=== PATIENT | female | born 1940 | race Caucasian/White ===

== ENCOUNTER → 2017-01-11 | Outpatient (CLI) | payer MEDICARE ==
[~2017-01-11] MED LIST: ALBUTEROL0.83 MG/ML; ALBUTEROL20 ml INH; BIOTIN; CALCIUM 1200 MG; CARVEDILOL12.5 MG PO; CITALOPRAM HBR40 MG PO; CLOBETASOL PROP59 ML TP; CYMBALTA PO; DICYCLOMINE HCL20 MG PO; ESOMEPRAZOLE MA40 MG PO; FOLIC ACID; HYDROCODONE-APA1 T56 PO; KLONOPIN1 MG PO; LEXAPRO PO; LIPITOR20 MG PO; MULTIVITAMIN; MYRBETRIQ25 MG PO; NEXIUM PO; OMEGA 3 FISH OI1 CAP PO; PERCOCET7.5 PO; PHENERGAN25 M1 PO; PROAIR HFA8.5 GM INH; QUETIAPINE FUMA50 MG PO; SYMBICORT INH; VITAMIN D35000 UNIT PO
--- NOTE | ~2017-01-11 | EKG ---
PATIENT: CHERELLE MAR UNIT #: [id number] Ventricular Rate: 53 BPM Atrial Rate: 53 BPM P-R Interval: 190 ms QRS Duration: 142 ms Q-T Interval: 468 ms QTC Calculation(Bezet): 439 ms P [place]: 84 degrees Calculated R [place]: 55 degrees Calculated T [place]: -18 degrees Diagnosis Line: Sinus bradycardia Diagnosis Line: Right bundle branch block Diagnosis Line: T wave abnormality, consider lateral ischemia Diagnosis Line: Abnormal ECG Diagnosis Line: No previous ECGs available Diagnosis Line: Confirmed by BERE ROBERTSON MD ([id number]) on Diagnosis Line: 01/11/2017 3:51:55 PM INTERPRETING MD: MARCELO MCKNIGHT
[2017-01-11 14:19] LABS: HEMATOCRIT 33.8 % (35.0-45.0); HEMOGLOBIN 10.9 gm/dL (12.0-16.0); MEAN CELL VOLUME 85.4 FL (83-96); MEAN CORPUSCULAR HEMOGLOBIN 27.5 PG (28-34); MEAN CORPUSCULAR HGB CONC 32.2 g/dL (30-36); MEAN PLATELET VOLUME 7.7 FL (6.5-11.5); RED BLOOD COUNT 3.96 X10e (3.90-5.30); RED CELL DISTRIBUTION WIDTH 16.9 % (11.0-15.5); WHITE BLOOD COUNT 4.8 X10e3 (4.0-10.5)
[2017-01-11 14:49] LABS: BUN/CREATININE RATIO 21.11; CALCIUM SERUM 8.6 mg/dL (8.4-10.2); CREATININE SERUM 0.9 mg/dL (0.6-1.4)
== END | disposition home or self-care (01) ==
LOC: CAMB 13:45
PROVIDERS: Orthopaedic Surgery
DX: Z01.818 Encounter for other preprocedural examination (principal); S86.811A Strain of other muscle(s) and tendon(s) at lower leg level, right leg, initial encounter; I45.10 Unspecified right bundle-branch block; R94.31 Abnormal electrocardiogram [ECG] [EKG]; R00.1 Bradycardia, unspecified
CPT/HCPCS: 36415; 80048; 85027; 93005